=== PATIENT | male | born 1965 | race African-American/Black ===

== ENCOUNTER 2017-11-15 10:21 | Inpatient (IN) | payer OTHER ==
[2017-11-15 10:34] VITALS: BMI 44.6
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
[2017-11-15] MEDS ORDERED: chlordiazePOXIDE HCL 25 MG CAPSULE PO PRN (15:10)
[2017-11-15] MEDS ORDERED: LOPERAMIDE HCL 2 MG CAPSULE PO PRN (15:10)
[2017-11-15] MEDS ORDERED: guaiFENesin/D-METHORPHAN HB 10 ML UNIT-DOSE CUPS PO PRN (15:10)
[2017-11-15] MEDS ORDERED: MAGNESIUM CITRATE 300 ML BOTTLE PO PRN (15:10)
[2017-11-15] MEDS ORDERED: MAGNESIUM HYDROX 2400MG/30ML ORAL SUSPENSION 30 ML CUP PO PRN (15:10)
[2017-11-15] MEDS ORDERED: IBUPROFEN 400 MG TABLET (FP) PO PRN (15:10)
[2017-11-15] MEDS ORDERED: MAG HYDROX/AL HYDROX/SIMETH 30 ML UNIT-DOSE CUP PO PRN (15:10)
[2017-11-15] MEDS ORDERED: P-EPHED 60MG/TRIPROLIDI 2.5MG TABLET PO PRN (15:10)
[2017-11-15] MEDS ORDERED: ACETAMINOPHEN 325 MG TABLET (FP) PO PRN (15:10)
[2017-11-15] MEDS ORDERED: MENTHOL/PHENOL 1 EACH UD MM PRN (15:10)
[2017-11-15] MEDS: chlordiazePOXIDE HCL 25 MG CAPSULE PO SCH ×2 (16:54→22:16)
[2017-11-15] MEDS ORDERED: MELATONIN 5 MG TABLETS PO PRN (22:00)
[2017-11-15] MEDS: THIAMINE HCL 100 MG TABLET (FP) PO SCH (22:15)
[2017-11-15] MEDS: NICOTINE POLACRILEX 2 MG GUM BUC PRN (22:18)
[2017-11-16 00:52] LABS: URINE APPEARANCE CLEAR; URINE BILIRUBIN NEGATIVE (<2.0 mg/dL); URINE COLOR YELLOW; URINE GLUCOSE (UA) NEGATIVE (NEGATIVE); URINE KETONE NEGATIVE (NEGATIVE); URINE LEUK ESTERASE NEGATIVE (NEGATIVE); URINE NITRITE NEGATIVE (NEGATIVE); URINE PROTEIN NEGATIVE (NEGATIVE); URINE UROBILINOGEN NEGATIVE mg/dL (0.2-1.0)
[2017-11-16] MEDS: chlordiazePOXIDE HCL 25 MG CAPSULE PO SCH ×4 (06:01→22:20)
[2017-11-16 10:33] LABS: HEMATOCRIT 38.9 % (35.4-49); HEMOGLOBIN 13.3 GM/dL (11.7-16.9); MCH 29.7 pg (25.7-33.7); MCHC 34.2 g/dl (32.0-35.9); MEAN PLT VOLUME 9.8 fl (7.5-11.1); PLATELET COUNT 199 K/MM3 (134-434); RBC 4.47 M/mm3 (4.00-5.60); RDW 13.7 % (11.9-15.9); WHITE BLOOD COUNT 4.5 K/mm3 (4.0-10.0)
[2017-11-16] MEDS: PRENATAL VITAMINS W/ FOLIC ACID TABLET (FP) PO SCH (10:38)
[2017-11-16] MEDS: NICOTINE POLACRILEX 2 MG GUM BUC PRN (10:41)
[2017-11-16 10:53] LABS: CHLORIDE 107 mmol/L (98-107); POTASSIUM 4.6 mmol/L (3.5-5.1); SODIUM 139 mmol/L (136-145)
[2017-11-16 10:59] LABS: ALBUMIN 3.8 g/dl (3.4-5.0); ALK PHOS 92 U/L (45-117); ANION GAP 8 (8-16); BILIRUBIN,TOTAL 0.3 mg/dL (0.2-1.0); BLOOD UREA NITROGEN 18 mg/dL (7-18); CALCIUM 9.1 mg/dL (8.5-10.1); CO2 24 mmol/L (21-32); CREATININE 1.1 mg/dL (0.7-1.3); GLUCOSE,RANDOM 91 mg/dL (74-106); SGOT/AST 15 U/L (15-37); SGPT/ALT 33 U/L (12-78); TOT PROT 6.9 g/dl (6.4-8.2)
--- NOTE | 2017-11-16 11:33 | PN ---
S CIWA - CIWA Score Nausea/Vomitin-No Nausea/No Vomiting Muscle Tremors: 4-Moderate,w/Arms Extend Anxiety: 4-Mod. Anxious/Guarded Agitation: 4-Moderately Restless Paroxysmal Sweats: 1-Minimal Palms Moist Orientation: 0-Oriented Tacttile Disturbances: 0-None Auditory Disturbances: 0-None Visual Disturbances: 0-None Headache: 0-None Present CIWA-Ar Total Score: 13 BHS Progress Note (SOAP) Subjective: ANXIETY,SWEATS,CHILLS,LOWER BACK/KNEE PAINS,INTERMITTENT SLEEP. Objective: 11/16/17 11:32 Vital Signs 11/16/17 11/16/17 11/16/17 06:22 06:30 09:27 Temperature 97.0 F L 97.7 F Pulse Rate 46 L 56 L Respiratory 18 18 18 Rate Blood Pressure 116/69 146/96 Laboratory Tests 11/15/17 11/16/17 11/16/17 23:23 06:00 06:00 WBC 4.5 RBC 4.47 Hgb 13.3 Hct 38.9 MCV 87.0 MCH 29.7 MCHC 34.2 RDW 13.7 Plt Count 199 MPV 9.8 D Sodium 139 Potassium 4.6 Chloride 107 Carbon Dioxide 24 Anion Gap 8 BUN 18 Creatinine 1.1 Creat Clearance w eGFR > 60 Random Glucose 91 Calcium 9.1 Total Bilirubin 0.3 AST 15 ALT 33 Alkaline Phosphatase 92 Total Protein 6.9 Albumin 3.8 Urine Color Yellow Urine Appearance Clear Urine pH 5.0 Ur Specific [place] 1.027 Urine Protein Negative Urine Glucose (UA) Negative Urine Ketones Negative Urine Blood Negative Urine Nitrite Negative Urine Bilirubin Negative Urine Urobilinogen Negative Ur Leukocyte Esterase Negative Assessment: 11/16/17 11:32 WITHDRAWAL SX Plan: CONTINUE DETOX MOTRIN PRN LIDOCAINE PATCH
--- NOTE | 2017-11-16 13:17 | EKG ---
Test Reason : Blood Pressure : / mmHG Vent. Rate : 054 BPM Atrial Rate : 054 BPM P-R Int : 148 ms QRS Dur : 078 ms QT Int : 434 ms P-R-T Axes : 059 043 054 degrees QTc Int : 411 ms SINUS BRADYCARDIA OTHERWISE NORMAL ECG NO PREVIOUS ECGS AVAILABLE Confirmed by Lloyd Moon MD ([id number]) on 11/16/2017 1:16:27 PM Referred By: Confirmed By:Lloyd Moon MD
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
[2017-11-16] MEDS: THIAMINE HCL 100 MG TABLET (FP) PO SCH (22:20)
[2017-11-17] MEDS: chlordiazePOXIDE HCL 25 MG CAPSULE PO SCH ×2 (05:18→10:21)
[2017-11-17] MEDS: PRENATAL VITAMINS W/ FOLIC ACID TABLET (FP) PO SCH (10:22)
--- NOTE | 2017-11-17 10:27 | PN ---
[facility] CIWA - CIWA Score Nausea/Vomitin-No Nausea/No Vomiting Muscle Tremors: 4-Moderate,w/Arms Extend Anxiety: 4-Mod. Anxious/Guarded Agitation: 4-Moderately Restless Paroxysmal Sweats: 1-Minimal Palms Moist Orientation: 0-Oriented Tacttile Disturbances: 3-Moderate Itch/Numb/Burn Auditory Disturbances: 0-None Visual Disturbances: 0-None Headache: 0-None Present CIWA-Ar Total Score: 16 BHS Progress Note (SOAP) Subjective: ANXIETY, SWEAT,LOWER BACK PAIN,INTERMITTENT SLEEP. Objective: 11/17/17 10:26 Laboratory Tests 11/15/17 11/16/17 11/16/17 23:23 06:00 06:00 WBC 4.5 RBC 4.47 Hgb 13.3 Hct 38.9 MCV 87.0 MCH 29.7 MCHC 34.2 RDW 13.7 Plt Count 199 MPV 9.8 D Sodium 139 Potassium 4.6 Chloride 107 Carbon Dioxide 24 Anion Gap 8 BUN 18 Creatinine 1.1 Creat Clearance w eGFR > 60 Random Glucose 91 Calcium 9.1 Total Bilirubin 0.3 AST 15 ALT 33 Alkaline Phosphatase 92 Total Protein 6.9 Albumin 3.8 Urine Color Yellow Urine Appearance Clear Urine pH 5.0 Ur Specific [place] 1.027 Urine Protein Negative Urine Glucose (UA) Negative Urine Ketones Negative Urine Blood Negative Urine Nitrite Negative Urine Bilirubin Negative Urine Urobilinogen Negative Ur Leukocyte Esterase Negative RPR Titer Laboratory Tests 11/15/17 11/16/17 11/16/17 23:23 06:00 06:00 WBC 4.5 RBC 4.47 Hgb 13.3 Hct 38.9 MCV 87.0 MCH 29.7 MCHC 34.2 RDW 13.7 Plt Count 199 MPV 9.8 D Sodium 139 Potassium 4.6 Chloride 107 Carbon Dioxide 24 Anion Gap 8 BUN 18 Creatinine 1.1 Creat Clearance w eGFR > 60 Random Glucose 91 Calcium 9.1 Total Bilirubin 0.3 AST 15 ALT 33 Alkaline Phosphatase 92 Total Protein 6.9 Albumin 3.8 Urine Color Yellow Urine Appearance Clear Urine pH 5.0 Ur Specific [place] 1.027 Urine Protein Negative Urine Glucose (UA) Negative Urine Ketones Negative Urine Blood Negative Urine Nitrite Negative Urine Bilirubin Negative Urine Urobilinogen Negative Ur Leukocyte Esterase Negative RPR Titer 11/16/17 06:00 WBC RBC Hgb Hct MCV MCH MCHC RDW Plt Count MPV Sodium Potassium Chloride Carbon Dioxide Anion Gap BUN Creatinine Creat Clearance w eGFR Random Glucose Calcium Total Bilirubin AST ALT Alkaline Phosphatase Total Protein Albumin Urine Color Urine Appearance Urine pH Ur Specific [place] Urine Protein Urine Glucose (UA) Urine Ketones Urine Blood Urine Nitrite Urine Bilirubin Urine Urobilinogen Ur Leukocyte Esterase RPR Titer Nonreactive Vital Signs 11/17/17 11/17/17 11/17/17 03:30 05:56 06:30 Temperature 97.4 F L Pulse Rate 52 L Respiratory 18 18 18 Rate Blood Pressure 127/81 Assessment: 11/17/17 10:27 WITHDRAWAL SX CHRONIC LBP Plan: CONTINUE DETOX LIDOCAINE PATCH 5% DIRECTED.
[2017-11-17] MEDS: LIDOCAINE 5% TOPICAL PATCH TP SCH (10:55)
[2017-11-17] MEDS: chlordiazePOXIDE 5 MG CAPSULE PO SCH ×2 (18:19→22:09)
[2017-11-17] MEDS: NICOTINE POLACRILEX 2 MG GUM BUC PRN (18:19)
[2017-11-17] MEDS: THIAMINE HCL 100 MG TABLET (FP) PO SCH (22:09)
[2017-11-17] MEDS: LIDOCAINE PATCH REMOVAL MC SCH (22:09)
[2017-11-18] MEDS: chlordiazePOXIDE 5 MG CAPSULE PO SCH ×2 (05:28→11:45)
--- NOTE | 2017-11-18 08:18 | PN ---
BHS Progress Note (SOAP) Subjective: C/O LOWER BACK PAIN. ANXIETY,SWEATS. Objective: 11/18/17 08:18 Laboratory Tests 11/15/17 11/16/17 11/16/17 23: 06:00 06:00 WBC 4.5 RBC 4.47 Hgb 13.3 Hct 38.9 MCV 87.0 MCH 29.7 MCHC 34.2 RDW 13.7 Plt Count 199 MPV 9.8 D Sodium 139 Potassium 4.6 Chloride 107 Carbon Dioxide 24 Anion Gap 8 BUN 18 Creatinine 1.1 Creat Clearance w eGFR > 60 Random Glucose 91 Calcium 9.1 Total Bilirubin 0.3 AST 15 ALT 33 Alkaline Phosphatase 92 Total Protein 6.9 Albumin 3.8 Urine Color Yellow Urine Appearance Clear Urine pH 5.0 Ur Specific [place] 1.027 Urine Protein Negative Urine Glucose (UA) Negative Urine Ketones Negative Urine Blood Negative Urine Nitrite Negative Urine Bilirubin Negative Urine Urobilinogen Negative Ur Leukocyte Esterase Negative RPR Titer 11/16/17 06:00 WBC RBC Hgb Hct MCV MCH MCHC RDW Plt Count MPV Sodium Potassium Chloride Carbon Dioxide Anion Gap BUN Creatinine Creat Clearance w eGFR Random Glucose Calcium Total Bilirubin AST ALT Alkaline Phosphatase Total Protein Albumin Urine Color Urine Appearance Urine pH Ur Specific [place] Urine Protein Urine Glucose (UA) Urine Ketones Urine Blood Urine Nitrite Urine Bilirubin Urine Urobilinogen Ur Leukocyte Esterase RPR Titer Nonreactive Assessment: 11/18/17 08:17 WITHDRAWAL SX Plan: CONTINUE DETOX LIDOCAINE PATCH 5% DIRECTED.
[2017-11-18] MEDS: NICOTINE POLACRILEX 2 MG GUM BUC PRN (11:45)
[2017-11-18] MEDS: LIDOCAINE 5% TOPICAL PATCH TP SCH (11:45)
[2017-11-18] MEDS: PRENATAL VITAMINS W/ FOLIC ACID TABLET (FP) PO SCH (11:45)
--- NOTE | 2017-11-18 13:15 | PN ---
BHS Progress Note (SOAP) Subjective: PT REPORTS DETOX PROCEEDING WELL. ENCOURAGED PT TO SEE COUNSELOR FOR AFTERCARE PLANS PENDING DISCHARGE. Objective: 11/18/17 13:15 Vital Signs 11/18/17 11/18/17 11/18/17 06:22 06:30 11:24 Temperature 97.6 F 98.6 F Pulse Rate 53 L 61 Respiratory 18 18 20 Rate Blood Pressure 114/67 139/78 Laboratory Tests 11/15/17 11/16/17 11/16/17 23:23 06:00 06:00 WBC 4.5 RBC 4.47 Hgb 13.3 Hct 38.9 MCV 87.0 MCH 29.7 MCHC 34.2 RDW 13.7 Plt Count 199 MPV 9.8 D Sodium 139 Potassium 4.6 Chloride 107 Carbon Dioxide 24 Anion Gap 8 BUN 18 Creatinine 1.1 Creat Clearance w eGFR > 60 Random Glucose 91 Calcium 9.1 Total Bilirubin 0.3 AST 15 ALT 33 Alkaline Phosphatase 92 Total Protein 6.9 Albumin 3.8 Urine Color Yellow Urine Appearance Clear Urine pH 5.0 Ur Specific [place] 1.027 Urine Protein Negative Urine Glucose (UA) Negative Urine Ketones Negative Urine Blood Negative Urine Nitrite Negative Urine Bilirubin Negative Urine Urobilinogen Negative Ur Leukocyte Esterase Negative RPR Titer 11/16/17 06:00 WBC RBC Hgb Hct MCV MCH MCHC RDW Plt Count MPV Sodium Potassium Chloride Carbon Dioxide Anion Gap BUN Creatinine Creat Clearance w eGFR Random Glucose Calcium Total Bilirubin AST ALT Alkaline Phosphatase Total Protein Albumin Urine Color Urine Appearance Urine pH Ur Specific [place] Urine Protein Urine Glucose (UA) Urine Ketones Urine Blood Urine Nitrite Urine Bilirubin Urine Urobilinogen Ur Leukocyte Esterase RPR Titer Nonreactive Assessment: 11/18/17 13:15 WITHDRAWAL SX Plan: CONTINUE DETOX
[2017-11-18] MEDS: chlordiazePOXIDE HCL 10 MG CAPSULE PO SCH ×2 (16:50→22:14)
[2017-11-18] MEDS: THIAMINE HCL 100 MG TABLET (FP) PO SCH (22:14)
[2017-11-18] MEDS: LIDOCAINE PATCH REMOVAL MC SCH (22:24)
[2017-11-19] MEDS: chlordiazePOXIDE HCL 10 MG CAPSULE PO SCH (06:02)
[2017-11-19 09:20] VITALS: BP 126/84; PULSE 61; TEMP 97
--- NOTE | 2017-11-19 12:43 | PN ---
BHS Progress Note (SOAP) Subjective: DETOX COMPLETED. ALERT O X 3. NAD. PT REPORTS HE GOES TO A DOCTOR AT [facility] FOR PRIMARY CARE. Objective: 11/19/17 12:42 Vital Signs 11/19/17 11/19/17 06:25 09:19 Temperature 97.9 F 97 F L Pulse Rate 57 L 61 Respiratory 18 20 Rate Blood Pressure 102/62 126/84 Laboratory Tests 11/15/17 11/16/17 11/16/17 23:23 06:00 06:00 WBC 4.5 RBC 4.47 Hgb 13.3 Hct 38.9 MCV 87.0 MCH 29.7 MCHC 34.2 RDW 13.7 Plt Count 199 MPV 9.8 D Sodium 139 Potassium 4.6 Chloride 107 Carbon Dioxide 24 Anion Gap 8 BUN 18 Creatinine 1.1 Creat Clearance w eGFR > 60 Random Glucose 91 Calcium 9.1 Total Bilirubin 0.3 AST 15 ALT 33 Alkaline Phosphatase 92 Total Protein 6.9 Albumin 3.8 Urine Color Yellow Urine Appearance Clear Urine pH 5.0 Ur Specific [place] 1.027 Urine Protein Negative Urine Glucose (UA) Negative Urine Ketones Negative Urine Blood Negative Urine Nitrite Negative Urine Bilirubin Negative Urine Urobilinogen Negative Ur Leukocyte Esterase Negative RPR Titer 11/16/17 06:00 WBC RBC Hgb Hct MCV MCH MCHC RDW Plt Count MPV Sodium Potassium Chloride Carbon Dioxide Anion Gap BUN Creatinine Creat Clearance w eGFR Random Glucose Calcium Total Bilirubin AST ALT Alkaline Phosphatase Total Protein Albumin Urine Color Urine Appearance Urine pH Ur Specific [place] Urine Protein Urine Glucose (UA) Urine Ketones Urine Blood Urine Nitrite Urine Bilirubin Urine Urobilinogen Ur Leukocyte Esterase RPR Titer Nonreactive Assessment: 11/19/17 12:42 MEDICALLY STABLE Plan: D/C PT TODAY.
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
== END 2017-11-19 09:50 | disposition home or self-care (01) | DRG 774 ==
LOC: YASAS 10:21 → Y3N 13:51
PROVIDERS: ADMIT Surgery; ATTEND Surgery
PROC: HZ2ZZZZ Detoxification Services for Substance Abuse Treatment (ICD-10-PCS; principal; 2017-11-15)
DX: F10.230 Alcohol dependence with withdrawal, uncomplicated (principal); F14.20 Cocaine dependence, uncomplicated; F17.213 Nicotine dependence, cigarettes, with withdrawal; M54.5 Low back pain; G89.29 Other chronic pain; E66.01 Morbid (severe) obesity due to excess calories; Z68.41 Body mass index [BMI] 40.0-44.9, adult; Z86.19 Personal history of other infectious and parasitic diseases; Z87.828 Personal history of other (healed) physical injury and trauma
CPT/HCPCS: 36415; 80053; 81003; 85027; 86593; 93005; 93010

== ENCOUNTER 2018-02-13 10:00 | Inpatient (IN) | payer OTHER ==
[2018-02-13 10:03] VITALS: BMI 42.5
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
[2018-02-13] MEDS ORDERED: hydrOXYzine PAMOATE 25 MG CAPSULE (FP) PO PRN (12:44)
[2018-02-13] MEDS ORDERED: NICOTINE POLACRILEX 2 MG GUM BC PRN (12:44)
[2018-02-13] MEDS ORDERED: MAGNESIUM HYDROX 2400MG/30ML ORAL SUSPENSION 30 ML CUP PO PRN (12:44)
[2018-02-13] MEDS ORDERED: chlordiazePOXIDE HCL 25 MG CAPSULE PO ONE (12:44)
[2018-02-13] MEDS ORDERED: MENTHOL/PHENOL 1 EACH UD MM PRN (12:44)
[2018-02-13] MEDS ORDERED: ACETAMINOPHEN 325 MG TABLET (FP) PO PRN (12:44)
[2018-02-13] MEDS ORDERED: MAG HYDROX/AL HYDROX/SIMETH 30 ML UNIT-DOSE CUP PO PRN (12:44)
[2018-02-13] MEDS ORDERED: LOPERAMIDE HCL 2 MG CAPSULE PO PRN (12:44)
[2018-02-13] MEDS ORDERED: guaiFENesin/D-METHORPHAN HB 10 ML UNIT-DOSE CUPS PO PRN (12:44)
[2018-02-13] MEDS ORDERED: P-EPHED 60MG/TRIPROLIDI 2.5MG TABLET PO PRN (12:44)
[2018-02-13] MEDS ORDERED: MAGNESIUM CITRATE 300 ML BOTTLE PO PRN (12:44)
[2018-02-13] MEDS ORDERED: chlordiazePOXIDE HCL 25 MG CAPSULE PO PRN (12:44)
[2018-02-13] MEDS: chlordiazePOXIDE HCL 25 MG CAPSULE PO SCH ×2 (17:49→22:18)
[2018-02-13] MEDS: IBUPROFEN 400 MG TABLET (FP) PO PRN (17:51)
[2018-02-13 18:40] LABS: URINE APPEARANCE CLEAR; URINE BILIRUBIN NEGATIVE (<2.0 mg/dL); URINE COLOR AMBER; URINE GLUCOSE (UA) NEGATIVE (NEGATIVE); URINE KETONE TRACE (NEGATIVE); URINE LEUK ESTERASE NEGATIVE (NEGATIVE); URINE NITRITE NEGATIVE (NEGATIVE); URINE PROTEIN NEGATIVE (NEGATIVE); URINE UROBILINOGEN 4.0 E.U/dl mg/dL (0.2-1.0)
[2018-02-13] MEDS: THIAMINE HCL 100 MG TABLET (FP) PO SCH (22:18)
[2018-02-14] MEDS: chlordiazePOXIDE HCL 25 MG CAPSULE PO SCH ×4 (05:26→22:17)
[2018-02-14] MEDS: PRENATAL VITAMINS W/ FOLIC ACID TABLET (FP) PO SCH (10:08)
[2018-02-14] MEDS: IBUPROFEN 400 MG TABLET (FP) PO PRN ×2 (10:09→22:16)
[2018-02-14 10:28] LABS: HEMATOCRIT 41.4 % (35.4-49); HEMOGLOBIN 13.2 GM/dL (11.7-16.9); MCH 27.8 pg (25.7-33.7); MCHC 31.8 g/dl (32.0-35.9); MEAN CELL VOLUME 87.6 fl (80-96); MEAN PLT VOLUME 8.9 fl (7.5-11.1); PLATELET COUNT 197 K/MM3 (134-434); RBC 4.73 M/mm3 (4.00-5.60); RDW 13.7 % (11.9-15.9); WHITE BLOOD COUNT 3.5 K/mm3 (4.0-10.0)
[2018-02-14 10:53] LABS: ALBUMIN 3.4 g/dl (3.4-5.0); ALK PHOS 90 U/L (45-117); ANION GAP 9 MMOL/L (8-16); BILIRUBIN,TOTAL 0.8 mg/dL (0.2-1); BLOOD UREA NITROGEN 17 mg/dL (7-18); CALCIUM 8.9 mg/dL (8.5-10.1); CHLORIDE 106 mmol/L (98-107); CO2 23 mmol/L (21-32); CREATININE 1.1 mg/dL (0.55-1.3); GLUCOSE,RANDOM 105 mg/dL (74-106); POTASSIUM 4.4 mmol/L (3.5-5.1); SGOT/AST 24 U/L (15-37); SGPT/ALT 37 U/L (13-61); SODIUM 139 mmol/L (136-145); TOT PROT 6.3 g/dl (6.4-8.2)
[2018-02-14] MEDS ORDERED: FLU VACCINE QUAD 60 MCG/0.5 ML (MDV 18-19) IM ONE (12:00)
--- NOTE | 2018-02-14 14:41 | PN ---
[facility] CIWA - CIWA Score Nausea/Vomitin-No Nausea/No Vomiting Muscle Tremors: 4-Moderate,w/Arms Extend Anxiety: 1-Mildly Anxious Agitation: 4-Moderately Restless Paroxysmal Sweats: 3 Orientation: 0-Oriented Tacttile Disturbances: 0-None Auditory Disturbances: 0-None Visual Disturbances: 0-None Headache: 0-None Present CIWA-Ar Total Score: 12 S Progress Note (SOAP) Subjective: C/o continued restlessness and feelings of anxiety. States had a diarrhea episode of watery brown stool earlier this am. Denies nausea or vomiting. C/o arthritis pain in knees and back. Objective: A&O x 3. Seen pacing floors. No increased warmth at knees or (L) shoulder area. 02/14/18 14:41 Vital Signs 02/14/18 02/14/18 09:01 13:17 Temperature 97.6 F 98.2 F Pulse Rate 58 L 61 Respiratory 18 18 Rate Blood Pressure 134/85 134/86 Lab Results WBC 3.5 K/mm3 (4.0-10.0) L 02/14/18 07:00 RBC 4.73 M/mm3 (4.00-5.60) 02/14/18 07:00 Hgb 13.2 GM/dL (11.7-16.9) 02/14/18 07:00 Hct 41.4 % (35.4-49) 02/14/18 07:00 MCV 87.6 fl (80-96) 02/14/18 07:00 MCHC 31.8 g/dl (32.0-35.9) L 02/14/18 07:00 RDW 13.7 % (11.9-15.9) 02/14/18 07:00 Plt Count 197 K/MM3 (134-434) 02/14/18 07:00 Sodium 139 mmol/L (136-145) 02/14/18 07:00 Potassium 4.4 mmol/L (3.5-5.1) 02/14/18 07:00 Chloride 106 mmol/L (98-107) 02/14/18 07:00 Carbon Dioxide 23 mmol/L (21-32) 02/14/18 07:00 Anion Gap 9 MMOL/L (8-16) 02/14/18 07:00 BUN 17 mg/dL (7-18) 02/14/18 07:00 Creatinine 1.1 mg/dL (0.55-1.3) 02/14/18 07:00 Random Glucose 105 mg/dL (74-106) 02/14/18 07:00 Calcium 8.9 mg/dL (8.5-10.1) 02/14/18 07:00 Labs reviewed. Assessment: Withdrawal symptoms. Arthritic pain. Plan: Continue detox.
[2018-02-14] MEDS: MELATONIN 5 MG TABLETS PO PRN (22:17)
[2018-02-14] MEDS: THIAMINE HCL 100 MG TABLET (FP) PO SCH (22:17)
--- NOTE | 2018-02-14 23:54 | EKG ---
Test Reason : Blood Pressure : / mmHG Vent. Rate : 073 BPM Atrial Rate : 073 BPM P-R Int : 144 ms QRS Dur : 084 ms QT Int : 400 ms P-R-T Axes : 065 011 055 degrees QTc Int : 440 ms NORMAL SINUS RHYTHM NONSPECIFIC T WAVE ABNORMALITY ABNORMAL ECG WHEN COMPARED WITH ECG OF 15-NOV-2017 15:39, NO SIGNIFICANT CHANGE WAS FOUND Confirmed by TOM LARSEN MD ([id number]) on 02/14/2018 11:53:57 PM Referred By: Confirmed By:TOM LARSEN MD
[2018-02-15] MEDS: chlordiazePOXIDE HCL 25 MG CAPSULE PO SCH ×2 (05:07→10:11)
[2018-02-15] MEDS ORDERED: IBUPROFEN 400 MG TABLET (FP) PO ONE (10:01)
[2018-02-15] MEDS: PRENATAL VITAMINS W/ FOLIC ACID TABLET (FP) PO SCH (10:11)
[2018-02-15] MEDS: METHYL SALICYLATE/MENTHOL OINT 30 GM TUBE TP SCH ×2 (10:19→22:39)
[2018-02-15] MEDS ORDERED: cloNIDine HCL 0.1 MG TABLET PO PRN (10:43)
--- NOTE | 2018-02-15 10:46 | PN ---
[facility] CIWA - CIWA Score Nausea/Vomitin Muscle Tremors: 3 Anxiety: 4-Mod. Anxious/Guarded Agitation: 3 Paroxysmal Sweats: 3 Orientation: 0-Oriented Tacttile Disturbances: 0-None Auditory Disturbances: 0-None Visual Disturbances: 0-None Headache: 0-None Present CIWA-Ar Total Score: 15 S Progress Note (SOAP) Subjective: Back pain (7/10), sweating, chills, interrupted sleep; c/o pain in knees (r/t arthritis) Objective: 02/15/18 10:42 Last Vital Signs Temp Pulse Resp BP Pulse Ox 96.1 F L 74 18 147/85 02/15/18 10:01 02/15/18 10:01 02/15/18 10:01 02/15/18 10:01 B/P elevated Laboratory Tests 02/13/18 02/14/18 02/14/18 14:35 07:00 07:00 WBC 3.5 L RBC 4.73 Hgb 13.2 Hct 41.4 MCV 87.6 MCH 27.8 MCHC 31.8 L RDW 13.7 Plt Count 197 MPV 8.9 Sodium 139 Potassium 4.4 Chloride 106 Carbon Dioxide 23 Anion Gap 9 BUN 17 Creatinine 1.1 Creat Clearance w eGFR > 60 Random Glucose 105 Calcium 8.9 Total Bilirubin 0.8 AST 24 ALT 37 Alkaline Phosphatase 90 Total Protein 6.3 L Albumin 3.4 Urine Color [place] Urine Appearance Clear Urine pH 5.0 Ur Specific [place] 1.028 Urine Protein Negative Urine Glucose (UA) Negative Urine Ketones Trace H Urine Blood Negative Urine Nitrite Negative Urine Bilirubin Negative Urine Urobilinogen 4.0 e.u/dl Ur Leukocyte Esterase Negative RPR Titer 02/14/18 07:00 WBC RBC Hgb Hct MCV MCH MCHC RDW Plt Count MPV Sodium Potassium Chloride Carbon Dioxide Anion Gap BUN Creatinine Creat Clearance w eGFR Random Glucose Calcium Total Bilirubin AST ALT Alkaline Phosphatase Total Protein Albumin Urine Color Urine Appearance Urine pH Ur Specific [place] Urine Protein Urine Glucose (UA) Urine Ketones Urine Blood Urine Nitrite Urine Bilirubin Urine Urobilinogen Ur Leukocyte Esterase RPR Titer Nonreactive Labs reviewed Assessment: 02/15/18 10:46 Withdrawal symptoms Noted with elevated blood pressure Plan: Continue detox Encouraged PO water intake Elevated blood pressure: most likely due to withdrawal, start clonidine 0.1mg PO q8hr prn if b/p > 140/90, continue to monitor Motrin 800mg PO x 1 for back pain 10/05; analgesic balm bid for pain in knees due to arthritis
[2018-02-15] MEDS: IBUPROFEN 400 MG TABLET (FP) PO PRN ×2 (17:31→22:36)
[2018-02-15] MEDS: chlordiazePOXIDE 5 MG CAPSULE PO SCH ×2 (17:31→22:35)
[2018-02-15] MEDS: THIAMINE HCL 100 MG TABLET (FP) PO SCH (22:35)
[2018-02-16] MEDS: chlordiazePOXIDE 5 MG CAPSULE PO SCH ×2 (05:54→10:12)
[2018-02-16] MEDS: PRENATAL VITAMINS W/ FOLIC ACID TABLET (FP) PO SCH (09:36)
[2018-02-16] MEDS: METHYL SALICYLATE/MENTHOL OINT 30 GM TUBE TP SCH ×2 (09:37→23:34)
--- NOTE | 2018-02-16 14:31 | PN ---
[facility] Progress Note (SOAP) Subjective: Sweating, diarrhea Objective: 02/16/18 14:30 Last Vital Signs Temp Pulse Resp BP Pulse Ox 97.7 F 72 18 132/79 02/16/18 13:35 02/16/18 13:35 02/16/18 13:35 02/16/18 13:35 Laboratory Tests 02/13/18 02/14/18 02/14/18 14:35 07:00 07:00 WBC 3.5 L RBC 4.73 Hgb 13.2 Hct 41.4 MCV 87.6 MCH 27.8 MCHC 31.8 L RDW 13.7 Plt Count 197 MPV 8.9 Sodium 139 Potassium 4.4 Chloride 106 Carbon Dioxide 23 Anion Gap 9 BUN 17 Creatinine 1.1 Creat Clearance w eGFR > 60 Random Glucose 105 Calcium 8.9 Total Bilirubin 0.8 AST 24 ALT 37 Alkaline Phosphatase 90 Total Protein 6.3 L Albumin 3.4 Urine Color [place] Urine Appearance Clear Urine pH 5.0 Ur Specific [place] 1.028 Urine Protein Negative Urine Glucose (UA) Negative Urine Ketones Trace H Urine Blood Negative Urine Nitrite Negative Urine Bilirubin Negative Urine Urobilinogen 4.0 e.u/dl Ur Leukocyte Esterase Negative RPR Titer 02/14/18 07:00 WBC RBC Hgb Hct MCV MCH MCHC RDW Plt Count MPV Sodium Potassium Chloride Carbon Dioxide Anion Gap BUN Creatinine Creat Clearance w eGFR Random Glucose Calcium Total Bilirubin AST ALT Alkaline Phosphatase Total Protein Albumin Urine Color Urine Appearance Urine pH Ur Specific [place] Urine Protein Urine Glucose (UA) Urine Ketones Urine Blood Urine Nitrite Urine Bilirubin Urine Urobilinogen Ur Leukocyte Esterase RPR Titer Nonreactive Labs reviewed Assessment: 02/16/18 14:30 Withdrawal symptoms Plan: Continue detox Encouraged PO water intake
[2018-02-16] MEDS: chlordiazePOXIDE HCL 10 MG CAPSULE PO SCH ×2 (18:51→22:24)
[2018-02-16] MEDS: MELATONIN 5 MG TABLETS PO PRN (22:25)
[2018-02-16] MEDS: THIAMINE HCL 100 MG TABLET (FP) PO SCH (22:25)
[2018-02-17] MEDS: chlordiazePOXIDE HCL 10 MG CAPSULE PO SCH ×2 (05:28→10:43)
[2018-02-17] MEDS: METHYL SALICYLATE/MENTHOL OINT 30 GM TUBE TP SCH ×2 (10:43→22:17)
[2018-02-17] MEDS: PRENATAL VITAMINS W/ FOLIC ACID TABLET (FP) PO SCH (10:43)
[2018-02-17] MEDS: IBUPROFEN 400 MG TABLET (FP) PO PRN ×2 (10:45→22:18)
--- NOTE | 2018-02-17 11:31 | PN ---
[facility] Progress Note (SOAP) Subjective: Sweating, chills, anxious Objective: 02/17/18 11:30 Last Vital Signs Temp Pulse Resp BP Pulse Ox 97.4 F L 70 18 118/71 02/17/18 09:03 02/17/18 09:03 02/17/18 09:03 02/17/18 09:03 Laboratory Tests 02/13/18 02/14/18 02/14/18 14:35 07:00 07:00 WBC 3.5 L RBC 4.73 Hgb 13.2 Hct 41.4 MCV 87.6 MCH 27.8 MCHC 31.8 L RDW 13.7 Plt Count 197 MPV 8.9 Sodium 139 Potassium 4.4 Chloride 106 Carbon Dioxide 23 Anion Gap 9 BUN 17 Creatinine 1.1 Creat Clearance w eGFR > 60 Random Glucose 105 Calcium 8.9 Total Bilirubin 0.8 AST 24 ALT 37 Alkaline Phosphatase 90 Total Protein 6.3 L Albumin 3.4 Urine Color [place] Urine Appearance Clear Urine pH 5.0 Ur Specific [place] 1.028 Urine Protein Negative Urine Glucose (UA) Negative Urine Ketones Trace H Urine Blood Negative Urine Nitrite Negative Urine Bilirubin Negative Urine Urobilinogen 4.0 e.u/dl Ur Leukocyte Esterase Negative RPR Titer 02/14/18 07:00 WBC RBC Hgb Hct MCV MCH MCHC RDW Plt Count MPV Sodium Potassium Chloride Carbon Dioxide Anion Gap BUN Creatinine Creat Clearance w eGFR Random Glucose Calcium Total Bilirubin AST ALT Alkaline Phosphatase Total Protein Albumin Urine Color Urine Appearance Urine pH Ur Specific [place] Urine Protein Urine Glucose (UA) Urine Ketones Urine Blood Urine Nitrite Urine Bilirubin Urine Urobilinogen Ur Leukocyte Esterase RPR Titer Nonreactive Labs reviewed Assessment: 02/17/18 11:30 Withdrawal symptoms Plan: Continue detox Encouraged PO water intake Patient is for discharge tomorrow
[2018-02-17] MEDS: THIAMINE HCL 100 MG TABLET (FP) PO SCH (22:17)
[2018-02-18 06:14] VITALS: BP 124/78; PULSE 65; TEMP 97.7
--- NOTE | 2018-02-18 12:22 | DS ---
[facility] Detox Discharge Summary Admission Date: 02/13/18 Discharge Date: 02/18/18 - History Present History: Alcohol Dependence - Physical Exam Results Vital Signs: Vital Signs Temperature 97.7 F 02/18/18 06:14 Pulse Rate 65 02/18/18 06:14 Respiratory Rate 18 02/18/18 06:14 Blood Pressure 124/78 02/18/18 06:14 O2 Sat by Pulse Oximetry (%) - Treatment Hospital Course: Detox Protocol Followed, Detoxed Safely, Responded well, Discharged Condition Good - Medication Discharge Medications: Ambulatory Orders NK [No Known Home Medication] 11/15/17 - AMA Did Patient Leave Against Medical Advice: No
== END 2018-02-18 08:46 | disposition home or self-care (01) | DRG 774 ==
LOC: YASAS 10:00 → Y3N 12:56
PROC: HZ2ZZZZ Detoxification Services for Substance Abuse Treatment (ICD-10-PCS; principal; 2018-02-13)
DX: F10.230 Alcohol dependence with withdrawal, uncomplicated (principal); F14.20 Cocaine dependence, uncomplicated; F17.213 Nicotine dependence, cigarettes, with withdrawal; D64.9 Anemia, unspecified; R03.0 Elevated blood-pressure reading, without diagnosis of hypertension; M12.9 Arthropathy, unspecified; Z87.39 Personal history of other diseases of the musculoskeletal system and connective tissue; Z86.79 Personal history of other diseases of the circulatory system
CPT/HCPCS: 36415; 80053; 81003; 85027; 86593; 90688; 93005; 93010; G0008; J0735

== ENCOUNTER 2018-06-03 10:15 | Inpatient (IN) | payer OTHER ==
[2018-06-03 11:21] VITALS: BMI 42.5
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
[2018-06-03] MEDS ORDERED: IBUPROFEN 400 MG TABLET (FP) PO PRN (13:20)
[2018-06-03] MEDS ORDERED: BISMUTH SUBSALICYLATE 262 MG/15 ML BTL PO PRN (13:20)
[2018-06-03] MEDS ORDERED: chlordiazePOXIDE HCL 25 MG CAPSULE PO PRN (13:20)
[2018-06-03] MEDS ORDERED: MAG HYDROX/AL HYDROX/SIMETH 30 ML UNIT-DOSE CUP PO PRN (13:20)
[2018-06-03] MEDS ORDERED: hydrOXYzine PAMOATE 25 MG CAPSULE (FP) PO PRN (13:20)
[2018-06-03] MEDS ORDERED: MENTHOL/PHENOL 1 EACH UD MM PRN (13:20)
[2018-06-03] MEDS ORDERED: MAGNESIUM HYDROX 2400MG/30ML ORAL SUSPENSION 30 ML CUP PO PRN (13:20)
[2018-06-03] MEDS ORDERED: MAGNESIUM CITRATE 300 ML BOTTLE PO PRN (13:20)
[2018-06-03] MEDS ORDERED: ACETAMINOPHEN 325 MG TABLET (FP) PO PRN ×2 (13:20)
[2018-06-03] MEDS: chlordiazePOXIDE HCL 25 MG CAPSULE PO SCH ×2 (16:58→22:55)
[2018-06-03] MEDS: THIAMINE HCL 100 MG TABLET (FP) PO SCH (22:55)
[2018-06-04] MEDS: chlordiazePOXIDE HCL 25 MG CAPSULE PO SCH ×4 (05:49→22:11)
[2018-06-04] MEDS: IBUPROFEN 600 MG TABLET (FP) PO PRN ×2 (05:52→17:53)
[2018-06-04 10:19] LABS: HEMOGLOBIN 13.3 GM/dL (11.7-16.9); MCH 29.4 pg (25.7-33.7); MCHC 34.1 g/dl (32.0-35.9); MEAN CELL VOLUME 86.1 fl (80-96); MEAN PLT VOLUME 9.5 fl (7.5-11.1); PLATELET COUNT 257 K/MM3 (134-434); RBC 4.53 M/mm3 (4.00-5.60); RDW 13.4 % (11.9-15.9)
[2018-06-04] MEDS: PRENATAL VITAMINS W/ FOLIC ACID TABLET (FP) PO SCH (10:40)
[2018-06-04 10:43] LABS: ALBUMIN 3.9 g/dl (3.4-5.0); ALK PHOS 107 U/L (45-117); ANION GAP 7 MMOL/L (8-16); BILIRUBIN,TOTAL 0.5 mg/dL (0.2-1); BLOOD UREA NITROGEN 19 mg/dL (7-18); CALCIUM 9.8 mg/dL (8.5-10.1); CHLORIDE 107 mmol/L (98-107); CO2 25 mmol/L (21-32); CREATININE 1.4 mg/dL (0.55-1.3); GLUCOSE,RANDOM 127 mg/dL (74-106); POTASSIUM 4.3 mmol/L (3.5-5.1); SGOT/AST 23 U/L (15-37); SGPT/ALT 54 U/L (13-61); SODIUM 140 mmol/L (136-145); TOT PROT 7.2 g/dl (6.4-8.2)
[2018-06-04] MEDS: NICOTINE POLACRILEX 2 MG GUM BUC PRN ×2 (13:29→17:54)
[2018-06-04] MEDS: guaiFENesin 200 MG/10 ML 10 ML UNIT-DOSE CUPS PO PRN ×2 (13:29→20:57)
--- NOTE | 2018-06-04 13:42 | PN ---
[facility] CIWA - CIWA Score Nausea/Vomitin-No Nausea/No Vomiting Muscle Tremors: None Anxiety: 2 Agitation: 0-Normal Activity Paroxysmal Sweats: 3 Orientation: 0-Oriented Tacttile Disturbances: 3-Moderate Itch/Numb/Burn Auditory Disturbances: 0-None Visual Disturbances: 3-Moderate Sensitivity Headache: 0-None Present CIWA-Ar Total Score: 11 S Progress Note (SOAP) Subjective: Sweating, Body Aches, Anxious. Objective: PATIENT A & O X 3, OBSERVED AMBULATING ON UNIT. IN NO ACUTE DISTRESS. 06/04/18 13:39 Vital Signs Temperature 97.5 F L 06/04/18 09:28 Pulse Rate 59 L 06/04/18 09:28 Respiratory Rate 18 06/04/18 09:28 Blood Pressure 132/79 06/04/18 09:28 O2 Sat by Pulse Oximetry (%) Laboratory Tests 06/03/18 06/04/18 06/04/18 13:20 05:30 05:30 WBC 6.0 RBC 4.53 Hgb 13.3 Hct 39.0 MCV 86.1 MCH 29.4 MCHC 34.1 RDW 13.4 Plt Count 257 D MPV 9.5 Sodium 140 Potassium 4.3 Chloride 107 Carbon Dioxide 25 Anion Gap 7 L BUN 19 H Creatinine 1.4 H Creat Clearance w eGFR 52.81 Random Glucose 127 H Calcium 9.8 Total Bilirubin 0.5 AST 23 ALT 54 Alkaline Phosphatase 107 Total Protein 7.2 Albumin 3.9 HIV 1&2 Antibody Screen Negative HIV P24 Antigen Negative LABS NOTED. RPR RESULT PENDING. 06/04/18 13:42 Assessment: 06/04/18 13:40 WITHDRAWAL SYMPTOMS. Plan: CONTINUE DETOX. INCREASE DAILY PO FLUID INTAKE. TOPICAL LIDODERM PATCH FOR LOWER BACK PAIN. PRN METHOCARBIMOL FOR BODY ACHES. MUSCLE SPASMS. D/C MAGNESIUM-CONTAINING MEDS. FOR ABNORMAL ADMISSION RENAL LAB VALUES.
[2018-06-04] MEDS: LIDOCAINE 5% TOPICAL PATCH TP SCH (14:29)
[2018-06-04] MEDS: THIAMINE HCL 100 MG TABLET (FP) PO SCH (22:11)
[2018-06-04] MEDS: MELATONIN 5 MG TABLETS PO PRN (22:12)
[2018-06-04] MEDS: LIDOCAINE PATCH REMOVAL MC SCH (23:37)
[2018-06-05] MEDS: chlordiazePOXIDE HCL 25 MG CAPSULE PO SCH ×2 (06:11→10:58)
[2018-06-05] MEDS: guaiFENesin 200 MG/10 ML 10 ML UNIT-DOSE CUPS PO PRN (06:11)
[2018-06-05] MEDS: IBUPROFEN 600 MG TABLET (FP) PO PRN ×3 (06:11→22:39)
[2018-06-05] MEDS: PRENATAL VITAMINS W/ FOLIC ACID TABLET (FP) PO SCH (10:58)
[2018-06-05] MEDS: LIDOCAINE 5% TOPICAL PATCH TP SCH (11:03)
--- NOTE | 2018-06-05 12:22 | PN ---
S CIWA - CIWA Score Nausea/Vomitin-No Nausea/No Vomiting Muscle Tremors: 2 Anxiety: 2 Agitation: 2 Paroxysmal Sweats: 1-Minimal Palms Moist Orientation: 0-Oriented Tacttile Disturbances: 0-None Auditory Disturbances: 0-None Visual Disturbances: 0-None Headache: 0-None Present CIWA-Ar Total Score: 7 S Progress Note (SOAP) Subjective: tremor able to sleep at night less headache today mild sweating more energy ambulating on hallway Objective: 06/05/18 12:22 Vital Signs Temperature 97.0 F L 06/05/18 06:24 Pulse Rate 60 06/05/18 06:24 Respiratory Rate 18 06/05/18 06:30 Blood Pressure 110/69 06/05/18 06:24 O2 Sat by Pulse Oximetry (%) Laboratory Last Values WBC 6.0 K/mm3 (4.0-10.0) 06/04/18 05:30 RBC 4.53 M/mm3 (4.00-5.60) 06/04/18 05:30 Hgb 13.3 GM/dL (11.7-16.9) 06/04/18 05:30 Hct 39.0 % (35.4-49) 06/04/18 05:30 MCV 86.1 fl (80-96) 06/04/18 05:30 MCH 29.4 pg (25.7-33.7) 06/04/18 05:30 MCHC 34.1 g/dl (32.0-35.9) 06/04/18 05:30 RDW 13.4 % (11.9-15.9) 06/04/18 05:30 Plt Count 257 K/MM3 (134-434) D 06/04/18 05:30 MPV 9.5 fl (7.5-11.1) 06/04/18 05:30 Sodium 140 mmol/L (136-145) 06/04/18 05:30 Potassium 4.3 mmol/L (3.5-5.1) 06/04/18 05:30 Chloride 107 mmol/L (98-107) 06/04/18 05:30 Carbon Dioxide 25 mmol/L (21-32) 06/04/18 05:30 Anion Gap 7 MMOL/L (8-16) L 06/04/18 05:30 BUN 19 mg/dL (7-18) H 06/04/18 05:30 Creatinine 1.4 mg/dL (0.55-1.3) H 06/04/18 05:30 Creat Clearance w eGFR 52.81 (>60) 06/04/18 05:30 Random Glucose 127 mg/dL (74-106) H 06/04/18 05:30 Calcium 9.8 mg/dL (8.5-10.1) 06/04/18 05:30 Total Bilirubin 0.5 mg/dL (0.2-1) 06/04/18 05:30 AST 23 U/L (15-37) 06/04/18 05:30 ALT 54 U/L (13-61) 06/04/18 05:30 Alkaline Phosphatase 107 U/L (45-117) 06/04/18 05:30 Total Protein 7.2 g/dl (6.4-8.2) 06/04/18 05:30 Albumin 3.9 g/dl (3.4-5.0) 06/04/18 05:30 RPR Titer Nonreactive (NONREACTIVE) 06/04/18 05:30 HIV 1&2 Antibody Screen Negative 06/03/18 13:20 HIV P24 Antigen Negative 06/03/18 13:20 lab noted Assessment: 06/05/18 12:22 withdrawal sx Plan: continue detox
[2018-06-05] MEDS: NICOTINE POLACRILEX 2 MG GUM BUC PRN ×2 (14:46→19:31)
[2018-06-05] MEDS ORDERED: chlordiazePOXIDE HCL 10 MG CAPSULE PO PRN (17:00)
[2018-06-05] MEDS: chlordiazePOXIDE HCL 10 MG CAPSULE PO SCH ×2 (17:50→22:40)
[2018-06-05] MEDS: THIAMINE HCL 100 MG TABLET (FP) PO SCH (22:39)
[2018-06-05] MEDS: MELATONIN 5 MG TABLETS PO PRN (22:40)
[2018-06-05] MEDS: METHOCARBAMOL 500 MG TABLET PO PRN (22:40)
[2018-06-05] MEDS: LIDOCAINE PATCH REMOVAL MC SCH (22:42)
[2018-06-06] MEDS: IBUPROFEN 600 MG TABLET (FP) PO PRN (05:42)
[2018-06-06] MEDS: chlordiazePOXIDE HCL 10 MG CAPSULE PO SCH ×3 (05:42→16:54)
[2018-06-06] MEDS: guaiFENesin 200 MG/10 ML 10 ML UNIT-DOSE CUPS PO PRN ×2 (05:43→16:56)
[2018-06-06] MEDS: PRENATAL VITAMINS W/ FOLIC ACID TABLET (FP) PO SCH (10:45)
[2018-06-06] MEDS: NICOTINE POLACRILEX 2 MG GUM BUC PRN ×2 (10:45→16:56)
[2018-06-06] MEDS: LIDOCAINE 5% TOPICAL PATCH TP SCH (10:47)
--- NOTE | 2018-06-06 14:45 | PN ---
S CIWA - CIWA Score Nausea/Vomitin-No Nausea/No Vomiting Muscle Tremors: 1-None Visible, but [place] Anxiety: 1-Mildly Anxious Agitation: 1-Slight > Activity Paroxysmal Sweats: No Perspiration Orientation: 0-Oriented Tacttile Disturbances: 0-None Auditory Disturbances: 0-None Visual Disturbances: 0-None Headache: 1-Very Mild CIWA-Ar Total Score: 4 BHS Progress Note (SOAP) Subjective: feeling better mild sweating less tremor ambulating on hallway social with peers Objective: 06/06/18 14:44 Vital Signs Temperature 98.9 F 06/06/18 13:37 Pulse Rate 72 06/06/18 13:37 Respiratory Rate 18 06/06/18 13:37 Blood Pressure 123/79 06/06/18 13:37 O2 Sat by Pulse Oximetry (%) Laboratory Last Values WBC 6.0 K/mm3 (4.0-10.0) 06/04/18 05:30 RBC 4.53 M/mm3 (4.00-5.60) 06/04/18 05:30 Hgb 13.3 GM/dL (11.7-16.9) 06/04/18 05:30 Hct 39.0 % (35.4-49) 06/04/18 05:30 MCV 86.1 fl (80-96) 06/04/18 05:30 MCH 29.4 pg (25.7-33.7) 06/04/18 05:30 MCHC 34.1 g/dl (32.0-35.9) 06/04/18 05:30 RDW 13.4 % (11.9-15.9) 06/04/18 05:30 Plt Count 257 K/MM3 (134-434) D 06/04/18 05:30 MPV 9.5 fl (7.5-11.1) 06/04/18 05:30 Sodium 140 mmol/L (136-145) 06/04/18 05:30 Potassium 4.3 mmol/L (3.5-5.1) 06/04/18 05:30 Chloride 107 mmol/L (98-107) 06/04/18 05:30 Carbon Dioxide 25 mmol/L (21-32) 06/04/18 05:30 Anion Gap 7 MMOL/L (8-16) L 06/04/18 05:30 BUN 19 mg/dL (7-18) H 06/04/18 05:30 Creatinine 1.4 mg/dL (0.55-1.3) H 06/04/18 05:30 Creat Clearance w eGFR 52.81 (>60) 06/04/18 05:30 Random Glucose 127 mg/dL (74-106) H 06/04/18 05:30 Calcium 9.8 mg/dL (8.5-10.1) 06/04/18 05:30 Total Bilirubin 0.5 mg/dL (0.2-1) 06/04/18 05:30 AST 23 U/L (15-37) 06/04/18 05:30 ALT 54 U/L (13-61) 06/04/18 05:30 Alkaline Phosphatase 107 U/L (45-117) 06/04/18 05:30 Total Protein 7.2 g/dl (6.4-8.2) 06/04/18 05:30 Albumin 3.9 g/dl (3.4-5.0) 06/04/18 05:30 RPR Titer Nonreactive (NONREACTIVE) 06/04/18 05:30 HIV 1&2 Antibody Screen Negative 06/03/18 13:20 HIV P24 Antigen Negative 06/03/18 13:20 lab noted Assessment: 06/06/18 14:44 mild withdrawal sx 06/06/18 14:45 Plan: continue detox
[2018-06-06] MEDS: METHOCARBAMOL 500 MG TABLET PO PRN (16:54)
[2018-06-06] MEDS: LIDOCAINE PATCH REMOVAL MC SCH (22:14)
[2018-06-06] MEDS: THIAMINE HCL 100 MG TABLET (FP) PO SCH (22:14)
[2018-06-07] MEDS: chlordiazePOXIDE HCL 10 MG CAPSULE PO SCH (05:38)
[2018-06-07] MEDS: guaiFENesin 200 MG/10 ML 10 ML UNIT-DOSE CUPS PO PRN (05:39)
[2018-06-07] MEDS: IBUPROFEN 600 MG TABLET (FP) PO PRN (06:02)
[2018-06-07] MEDS: LIDOCAINE 5% TOPICAL PATCH TP SCH (10:27)
[2018-06-07] MEDS: PRENATAL VITAMINS W/ FOLIC ACID TABLET (FP) PO SCH (10:27)
[2018-06-07] MEDS: NICOTINE POLACRILEX 2 MG GUM BUC PRN ×2 (10:27→13:28)
[2018-06-07] MEDS: METHOCARBAMOL 500 MG TABLET PO PRN (10:27)
[2018-06-07 13:38] VITALS: BP 126/78; PULSE 77; TEMP 98
--- NOTE | 2018-06-07 15:10 | DS ---
[facility] Detox Discharge Summary Admission Date: 06/03/18 Discharge Date: 06/07/18 - History Present History: Alcohol Dependence Additional Comments: 53 years old male admitted on 06/03/18 for alcohol withdrawal stabilization completed detox regimen [facility] - Physical Exam Results Vital Signs: Vital Signs Temperature 98 F 06/07/18 13:36 Pulse Rate 77 06/07/18 13:36 Respiratory Rate 18 06/07/18 13:36 Blood Pressure 126/78 06/07/18 13:36 O2 Sat by Pulse Oximetry (%) Pertinent Admission Physical Exam Findings: alcohol withdrawal sx Laboratory Last Values WBC 6.0 K/mm3 (4.0-10.0) 06/04/18 05:30 RBC 4.53 M/mm3 (4.00-5.60) 06/04/18 05:30 Hgb 13.3 GM/dL (11.7-16.9) 06/04/18 05:30 Hct 39.0 % (35.4-49) 06/04/18 05:30 MCV 86.1 fl (80-96) 06/04/18 05:30 MCH 29.4 pg (25.7-33.7) 06/04/18 05:30 MCHC 34.1 g/dl (32.0-35.9) 06/04/18 05:30 RDW 13.4 % (11.9-15.9) 06/04/18 05:30 Plt Count 257 K/MM3 (134-434) D 06/04/18 05:30 MPV 9.5 fl (7.5-11.1) 06/04/18 05:30 Sodium 140 mmol/L (136-145) 06/04/18 05:30 Potassium 4.3 mmol/L (3.5-5.1) 06/04/18 05:30 Chloride 107 mmol/L (98-107) 06/04/18 05:30 Carbon Dioxide 25 mmol/L (21-32) 06/04/18 05:30 Anion Gap 7 MMOL/L (8-16) L 06/04/18 05:30 BUN 19 mg/dL (7-18) H 06/04/18 05:30 Creatinine 1.4 mg/dL (0.55-1.3) H 06/04/18 05:30 Creat Clearance w eGFR 52.81 (>60) 06/04/18 05:30 Random Glucose 127 mg/dL (74-106) H 06/04/18 05:30 Calcium 9.8 mg/dL (8.5-10.1) 06/04/18 05:30 Total Bilirubin 0.5 mg/dL (0.2-1) 06/04/18 05:30 AST 23 U/L (15-37) 06/04/18 05:30 ALT 54 U/L (13-61) 06/04/18 05:30 Alkaline Phosphatase 107 U/L (45-117) 06/04/18 05:30 Total Protein 7.2 g/dl (6.4-8.2) 06/04/18 05:30 Albumin 3.9 g/dl (3.4-5.0) 06/04/18 05:30 RPR Titer Nonreactive (NONREACTIVE) 06/04/18 05:30 HIV 1&2 Antibody Screen Negative 06/03/18 13:20 HIV P24 Antigen Negative 06/03/18 13:20 lab noted - Treatment Hospital Course: Detox Protocol Followed, Detoxed Safely, Responded well, Discharged Condition Good, Rehab Referral Accepted Patient has Accepted a Rehab Referral to: [facility] - Medication Discharge Medications: Ambulatory Orders NK [No Known Home Medication] 11/15/17 - Diagnosis (1) Nicotine dependence Status: Acute Qualifiers: Nicotine product type: cigarettes Substance use status: in withdrawal Qualified Code(s): F17.213 - Nicotine dependence, cigarettes, with withdrawal (2) Alcohol dependence with uncomplicated withdrawal Status: Acute - AMA Did Patient Leave Against Medical Advice: No
== END 2018-06-07 14:04 | disposition home or self-care (01) | DRG 774 ==
LOC: YASAS 10:15 → Y3N 13:23
PROVIDERS: ADMIT Surgery; ATTEND Surgery
PROC: HZ2ZZZZ Detoxification Services for Substance Abuse Treatment (ICD-10-PCS; principal; 2018-06-03)
DX: F10.230 Alcohol dependence with withdrawal, uncomplicated (principal); F17.210 Nicotine dependence, cigarettes, uncomplicated; F14.20 Cocaine dependence, uncomplicated; R55 Syncope and collapse; E66.9 Obesity, unspecified; Z68.41 Body mass index [BMI] 40.0-44.9, adult; Z86.2 Personal history of diseases of the blood and blood-forming organs and certain disorders involving the immune mechanism; Z86.19 Personal history of other infectious and parasitic diseases; Z87.828 Personal history of other (healed) physical injury and trauma
CPT/HCPCS: 36415; 80053; 85027; 86593; 87389

== ENCOUNTER 2020-05-29 14:23 | Inpatient (IN) | payer OTHER ==
[2020-05-29 18:46] VITALS: BMI 35.7
[2020-05-29] MEDS ORDERED: NICOTINE POLACRILEX 2 MG GUM BUC PRN (20:46)
[2020-05-29] MEDS ORDERED: MAGNESIUM HYDROX 2400MG/30ML ORAL SUSPENSION 30 ML CUP PO PRN (20:46)
[2020-05-29] MEDS ORDERED: MENTHOL/PHENOL 1 EACH UD MM PRN (20:46)
[2020-05-29] MEDS ORDERED: MAGNESIUM CITRATE 300 ML BOTTLE PO PRN (20:46)
[2020-05-29] MEDS ORDERED: BISMUTH SUBSALICYLATE 524 MG/30 ML UD PO PRN (20:46)
[2020-05-29] MEDS ORDERED: MAG HYDROX/AL HYDROX/SIMETH 30 ML UNIT-DOSE CUP PO PRN (20:46)
[2020-05-29] MEDS ORDERED: ACETAMINOPHEN 325 MG TABLET (FP) PO PRN ×2 (20:46)
[2020-05-29] MEDS ORDERED: ONDANSETRON *ODT* 4 MG TABLET SL PRN (20:46)
[2020-05-29] MEDS ORDERED: chlordiazePOXIDE HCL 25 MG CAPSULE PO PRN (20:49)
[2020-05-29] MEDS ORDERED: HYDROCORTISONE 0.5% TOPICAL OINTMENT TUBE TP PRN (20:49)
[2020-05-30] MEDS: MELATONIN 5 MG TABLETS PO SCH ×2 (00:02→22:29)
[2020-05-30] MEDS: chlordiazePOXIDE HCL 25 MG CAPSULE PO SCH ×5 (00:05→22:28)
[2020-05-30] MEDS: THIAMINE HCL 100 MG TABLET (FP) PO SCH ×2 (00:07→22:28)
[2020-05-30] MEDS: CARBAMIDE PEROXIDE 6.5% OTIC 15 ML BOTTLE AU SCH ×3 (02:08→22:30)
[2020-05-30] MEDS: METHOCARBAMOL 500 MG TABLET PO PRN (06:10)
[2020-05-30] MEDS: PRENATAL VITAMINS W/ FOLIC ACID TABLET (FP) PO SCH (10:15)
[2020-05-30] MEDS: IBUPROFEN 400 MG TABLET (FP) PO PRN ×2 (10:16→18:07)
[2020-05-30] MEDS ORDERED: FLU VACCINE (FLULAVAL) PF 60 MCG/0.5 ML SYRINGE 2020-2021 IM ONE (12:00)
[2020-05-30 13:44] LABS: HEMATOCRIT 38.1 % (35.4-49); HEMOGLOBIN 12.7 GM/dL (11.7-16.9); MCH 30.1 pg (25.7-33.7); MCHC 33.3 g/dl (32.0-35.9); MEAN CELL VOLUME 90.6 fl (80-96); MEAN PLT VOLUME 9.6 fl (7.5-11.1); PLATELET COUNT 181 K/MM3 (134-434); RDW 13.2 % (11.9-15.9); WHITE BLOOD COUNT 3.5 K/mm3 (4.0-10.0)
[2020-05-30 13:54] LABS: ALBUMIN 3.3 g/dl (3.4-5.0)
[2020-05-30 13:55] LABS: BLOOD UREA NITROGEN 20.8 mg/dL (7-18); CREATININE 1.2 mg/dL (0.55-1.3)
[2020-05-30 13:56] LABS: TOT PROT 5.8 g/dl (6.4-8.2)
[2020-05-30 14:00] LABS: BILIRUBIN,TOTAL 0.7 mg/dL (0.2-1)
[2020-05-30 16:52] LABS: HIV INTERPRETATION NEGATIVE (NEGATIVE)
[2020-05-31] MEDS: chlordiazePOXIDE HCL 25 MG CAPSULE PO SCH ×4 (06:06→22:29)
[2020-05-31] MEDS: IBUPROFEN 400 MG TABLET (FP) PO PRN (06:10)
[2020-05-31] MEDS: CARBAMIDE PEROXIDE 6.5% OTIC 15 ML BOTTLE AU SCH ×2 (10:37→23:17)
[2020-05-31] MEDS: METHOCARBAMOL 500 MG TABLET PO PRN ×2 (10:37→18:34)
[2020-05-31] MEDS: PRENATAL VITAMINS W/ FOLIC ACID TABLET (FP) PO SCH (10:37)
[2020-05-31] MEDS: THIAMINE HCL 100 MG TABLET (FP) PO SCH (22:29)
[2020-05-31] MEDS: MELATONIN 5 MG TABLETS PO SCH (22:29)
[2020-06-01] MEDS ORDERED: chlordiazePOXIDE HCL 10 MG CAPSULE PO PRN
[2020-06-01] MEDS: chlordiazePOXIDE HCL 10 MG CAPSULE PO SCH ×4 (06:40→22:39)
[2020-06-01] MEDS: METHOCARBAMOL 500 MG TABLET PO PRN ×2 (06:41→18:04)
[2020-06-01] MEDS: IBUPROFEN 400 MG TABLET (FP) PO PRN ×2 (06:43→22:40)
[2020-06-01] MEDS: CARBAMIDE PEROXIDE 6.5% OTIC 15 ML BOTTLE AU SCH ×2 (10:25→23:04)
[2020-06-01] MEDS: PRENATAL VITAMINS W/ FOLIC ACID TABLET (FP) PO SCH (10:26)
[2020-06-01] MEDS: THIAMINE HCL 100 MG TABLET (FP) PO SCH (22:39)
[2020-06-01] MEDS: MELATONIN 5 MG TABLETS PO SCH (22:40)
[2020-06-02] MEDS: chlordiazePOXIDE HCL 10 MG CAPSULE PO SCH ×2 (06:20→17:12)
[2020-06-02] MEDS: METHOCARBAMOL 500 MG TABLET PO PRN (06:21)
[2020-06-02] MEDS: PRENATAL VITAMINS W/ FOLIC ACID TABLET (FP) PO SCH (10:31)
[2020-06-02] MEDS: CARBAMIDE PEROXIDE 6.5% OTIC 15 ML BOTTLE AU SCH ×2 (10:31→22:24)
[2020-06-02] MEDS: MELATONIN 5 MG TABLETS PO SCH (22:24)
[2020-06-02] MEDS: THIAMINE HCL 100 MG TABLET (FP) PO SCH (22:24)
[2020-06-03] MEDS ORDERED: chlordiazePOXIDE HCL 10 MG CAPSULE PO ONE (05:00)
[2020-06-03 09:07] VITALS: BP 147/83; PULSE 57; TEMP 97.5
[2020-06-03] MEDS: CARBAMIDE PEROXIDE 6.5% OTIC 15 ML BOTTLE AU SCH (10:00)
[2020-06-03] MEDS: PRENATAL VITAMINS W/ FOLIC ACID TABLET (FP) PO SCH (10:01)
== END 2020-06-03 11:38 | disposition home or self-care (01) | DRG 774 ==
LOC: YASAS 14:23 → Y6N 22:26
PROVIDERS: ADMIT Allergy & Immunology; ATTEND Allergy & Immunology
PROC: HZ2ZZZZ Detoxification Services for Substance Abuse Treatment (ICD-10-PCS; principal; 2020-05-29)
DX: F10.230 Alcohol dependence with withdrawal, uncomplicated (principal); F10.220 Alcohol dependence with intoxication, uncomplicated; F14.20 Cocaine dependence, uncomplicated; F17.210 Nicotine dependence, cigarettes, uncomplicated; D72.819 Decreased white blood cell count, unspecified; H93.13 Tinnitus, bilateral; E66.9 Obesity, unspecified; Z68.35 Body mass index [BMI] 35.0-35.9, adult; Z86.2 Personal history of diseases of the blood and blood-forming organs and certain disorders involving the immune mechanism; Z86.19 Personal history of other infectious and parasitic diseases; Z87.828 Personal history of other (healed) physical injury and trauma
CPT/HCPCS: 36415; 80053; 82962; 85027; 86780; 87389; 93005; 93010; C9803; G0008; Q2036; U0003

== ENCOUNTER 2021-05-15 14:35 | Inpatient (IN) | payer OTHER ==
[2021-05-15 16:24] VITALS: BMI 34.3
[2021-05-15] MEDS ORDERED: chlordiazePOXIDE HCL 25 MG CAPSULE PO PRN (19:22)
[2021-05-15] MEDS ORDERED: MAG HYDROX/AL HYDROX/SIMETH 30 ML UNIT-DOSE CUP PO PRN (19:22)
[2021-05-15] MEDS ORDERED: NICOTINE 10 MG CARTRIDGE (INHALER) IH PRN (19:22)
[2021-05-15] MEDS ORDERED: METHOCARBAMOL 500 MG TABLET PO PRN (19:22)
[2021-05-15] MEDS ORDERED: MAGNESIUM CITRATE 300 ML BOTTLE PO PRN (19:22)
[2021-05-15] MEDS ORDERED: BISMUTH SUBSALICYLATE 524 MG/30 ML PO PRN (19:22)
[2021-05-15] MEDS ORDERED: MAGNESIUM HYDROX 2400MG/30ML ORAL SUSPENSION 30 ML CUP PO PRN (19:22)
[2021-05-15] MEDS ORDERED: ONDANSETRON *ODT* 4 MG TABLET SL PRN (19:22)
[2021-05-15] MEDS ORDERED: ACETAMINOPHEN 325 MG TABLET (FP) PO PRN (19:22)
[2021-05-15] MEDS ORDERED: LOPERAMIDE HCL 2 MG CAPSULE PO PRN (19:22)
[2021-05-16] MEDS: MELATONIN 5 MG TABLETS PO SCH ×2 (00:37→22:10)
[2021-05-16] MEDS: hydrOXYzine PAMOATE 25 MG CAPSULE (FP) PO SCH ×6 (00:37→22:10)
[2021-05-16] MEDS: chlordiazePOXIDE HCL 25 MG CAPSULE PO SCH ×5 (00:37→22:11)
[2021-05-16] MEDS: THIAMINE HCL 100 MG TABLET (FP) PO SCH ×2 (00:37→22:10)
[2021-05-16] MEDS: IBUPROFEN 400 MG TABLET (FP) PO PRN ×2 (05:40→17:59)
[2021-05-16] MEDS: PRENATAL VITAMINS W/ FOLIC ACID TABLET (FP) PO SCH (10:34)
[2021-05-16 12:30] LABS: HEMATOCRIT 35.4 % (35.4-49); HEMOGLOBIN 11.5 GM/dL (11.7-16.9); MCH 30.5 pg (25.7-33.7); MCHC 32.4 g/dl (32.0-35.9); MEAN CELL VOLUME 94.1 fl (80-96); MEAN PLT VOLUME 9.4 fl (7.5-11.1); PLATELET COUNT 180 10^3/uL (134-434); RBC 3.77 M/mm3 (4.00-5.60); RDW 14.4 % (11.9-15.9); WHITE BLOOD COUNT 3.6 K/mm3 (4.0-10.0)
[2021-05-16 12:44] LABS: ALBUMIN 3.1 g/dl (3.4-5.0); BLOOD UREA NITROGEN 16.1 mg/dL (7-18)
[2021-05-16 12:47] LABS: CREATININE 1.1 mg/dL (0.55-1.3)
[2021-05-16 12:49] LABS: BILIRUBIN,TOTAL 0.3 mg/dL (0.2-1); TOT PROT 5.7 g/dl (6.4-8.2)
[2021-05-16] MEDS: MENTHOL/PHENOL 1 EACH UD MM PRN (22:12)
[2021-05-17] MEDS: chlordiazePOXIDE HCL 25 MG CAPSULE PO SCH ×4 (05:42→22:48)
[2021-05-17] MEDS: hydrOXYzine PAMOATE 25 MG CAPSULE (FP) PO SCH ×5 (05:42→22:48)
[2021-05-17] MEDS: IBUPROFEN 400 MG TABLET (FP) PO PRN (05:44)
[2021-05-17] MEDS: PRENATAL VITAMINS W/ FOLIC ACID TABLET (FP) PO SCH (11:01)
[2021-05-17 12:31] LABS: HIV INTERPRETATION NEGATIVE (NEGATIVE)
[2021-05-17] MEDS: NICOTINE POLACRILEX 4 MG GUM BUC PRN (20:33)
[2021-05-17] MEDS: THIAMINE HCL 100 MG TABLET (FP) PO SCH (22:48)
[2021-05-17] MEDS: MELATONIN 5 MG TABLETS PO SCH (22:48)
[2021-05-18] MEDS ORDERED: chlordiazePOXIDE HCL 10 MG CAPSULE PO PRN
[2021-05-18] MEDS: chlordiazePOXIDE HCL 10 MG CAPSULE PO SCH ×4 (05:45→22:35)
[2021-05-18] MEDS: hydrOXYzine PAMOATE 25 MG CAPSULE (FP) PO SCH ×5 (05:45→22:35)
[2021-05-18] MEDS: MENTHOL/PHENOL 1 EACH UD MM PRN ×2 (05:47→10:55)
[2021-05-18] MEDS: NICOTINE POLACRILEX 4 MG GUM BUC PRN ×2 (05:47→10:54)
[2021-05-18] MEDS: PRENATAL VITAMINS W/ FOLIC ACID TABLET (FP) PO SCH (10:51)
[2021-05-18] MEDS: ACETAMINOPHEN 325 MG TABLET (FP) PO PRN (10:52)
[2021-05-18] MEDS: MELATONIN 5 MG TABLETS PO SCH (22:35)
[2021-05-18] MEDS: THIAMINE HCL 100 MG TABLET (FP) PO SCH (22:35)
[2021-05-19] MEDS: chlordiazePOXIDE HCL 10 MG CAPSULE PO SCH ×2 (05:37→17:44)
[2021-05-19] MEDS: hydrOXYzine PAMOATE 25 MG CAPSULE (FP) PO SCH ×5 (05:38→22:17)
[2021-05-19] MEDS: ACETAMINOPHEN 325 MG TABLET (FP) PO PRN (05:38)
[2021-05-19] MEDS: PRENATAL VITAMINS W/ FOLIC ACID TABLET (FP) PO SCH (10:52)
[2021-05-19] MEDS: NICOTINE POLACRILEX 4 MG GUM BUC PRN ×2 (10:52→17:46)
[2021-05-19] MEDS: MENTHOL/PHENOL 1 EACH UD MM PRN ×2 (10:52→17:45)
[2021-05-19 17:10] LABS: SARS-CoV-2 NAA Not Detected
[2021-05-19] MEDS: THIAMINE HCL 100 MG TABLET (FP) PO SCH (22:17)
[2021-05-19] MEDS: MELATONIN 5 MG TABLETS PO SCH (22:17)
[2021-05-20] MEDS ORDERED: chlordiazePOXIDE HCL 10 MG CAPSULE PO ONE (05:00)
[2021-05-20] MEDS: hydrOXYzine PAMOATE 25 MG CAPSULE (FP) PO SCH ×2 (05:51→10:11)
[2021-05-20 09:09] VITALS: BP 141/96; PULSE 58; TEMP 96.8
[2021-05-20] MEDS: PRENATAL VITAMINS W/ FOLIC ACID TABLET (FP) PO SCH (10:11)
== END 2021-05-20 09:52 | disposition home or self-care (01) | DRG 774 ==
LOC: YASAS 14:35 → Y3N 22:56
PROVIDERS: ADMIT Allergy & Immunology; ATTEND Allergy & Immunology
PROC: HZ2ZZZZ Detoxification Services for Substance Abuse Treatment (ICD-10-PCS; principal; 2021-05-15)
DX: F10.230 Alcohol dependence with withdrawal, uncomplicated (principal); F14.20 Cocaine dependence, uncomplicated; F17.210 Nicotine dependence, cigarettes, uncomplicated; D64.9 Anemia, unspecified; M19.90 Unspecified osteoarthritis, unspecified site; M54.50 Low back pain, unspecified; G89.29 Other chronic pain
CPT/HCPCS: 36415; 80053; 85027; 86780; 87389; 87811; C9803; U0003; U0005

== ENCOUNTER 2022-03-16 09:51 | Inpatient (IN) | payer OTHER ==
[2022-03-16 10:24] VITALS: BMI 30.4
[2022-03-16] MEDS ORDERED: MAGNESIUM HYDROX 2400MG/30ML ORAL SUSPENSION 30 ML CUP PO PRN (11:21)
[2022-03-16] MEDS ORDERED: ONDANSETRON *ODT* 4 MG TABLET SL PRN (11:21)
[2022-03-16] MEDS ORDERED: LOPERAMIDE HCL 2 MG CAPSULE PO PRN (11:21)
[2022-03-16] MEDS ORDERED: MAG HYDROX/AL HYDROX/SIMETH 30 ML UNIT-DOSE CUP PO PRN (11:21)
[2022-03-16] MEDS ORDERED: DICYCLOMINE HCL 10 MG CAPSULE PO PRN (11:21)
[2022-03-16] MEDS ORDERED: chlordiazePOXIDE HCL 25 MG CAPSULE PO PRN (11:21)
[2022-03-16] MEDS ORDERED: NALOXONE HCL (KLOXXADO) 8 MG SPRAY NS PRN (11:21)
[2022-03-16] MEDS ORDERED: ACETAMINOPHEN 325 MG TABLET (FP) PO PRN (11:21)
[2022-03-16] MEDS ORDERED: IBUPROFEN 400 MG TABLET (FP) PO PRN (11:21)
[2022-03-16] MEDS ORDERED: BISMUTH SUBSALICYLATE 262 MG/15 ML BTL PO PRN (11:21)
[2022-03-16] MEDS ORDERED: BENZOCAINE/MENTHOL (CHLORASEPTIC ) LOZENGE MM PRN (11:21)
[2022-03-16] MEDS ORDERED: POLYETHYLENE GLYCOL (HEALTHYLAX) 3350 17 GM PACKET PO PRN (11:21)
[2022-03-16] MEDS ORDERED: NICOTINE 10 MG CARTRIDGE (INHALER) IH PRN (11:21)
[2022-03-16] MEDS: ACETAMINOPHEN 325 MG TABLET (FP) PO PRN ×2 (13:04→20:33)
[2022-03-16] MEDS: VITAMINS A AND D TOPICAL OINTMENT 60 GM TUBE TP SCH ×3 (13:05→23:05)
[2022-03-16 17:34] LABS: HEMATOCRIT 36.4 % (35.4-49); HEMOGLOBIN 11.9 GM/dL (11.7-16.9); MCH 29.3 pg (25.7-33.7); MCHC 32.6 g/dl (32.0-35.9); MEAN CELL VOLUME 89.9 fl (80-96); MEAN PLT VOLUME 8.8 fl (7.5-11.1); PLATELET COUNT 210 10^3/uL (134-434); RBC 4.05 M/mm3 (4.00-5.60); RDW 12.8 % (11.9-15.9); WHITE BLOOD COUNT 4.3 K/mm3 (4.0-10.0)
[2022-03-16 17:36] LABS: ALBUMIN 3.3 g/dl (3.4-5.0); CALCIUM 9.1 mg/dL (8.5-10.1)
[2022-03-16 17:37] LABS: BLOOD UREA NITROGEN 19.6 mg/dL (7-18)
[2022-03-16] MEDS: chlordiazePOXIDE HCL 25 MG CAPSULE PO SCH ×2 (17:39→22:30)
[2022-03-16 17:40] LABS: CREATININE 1.1 mg/dL (0.55-1.3)
[2022-03-16] MEDS: IBUPROFEN 600 MG TABLET (FP) PO PRN (17:40)
[2022-03-16 17:41] LABS: BILIRUBIN,TOTAL 0.7 mg/dL (0.2-1); TOT PROT 6.3 g/dl (6.4-8.2)
[2022-03-16] MEDS ORDERED: LIDOCAINE VISCOUS 2% ORAL/TOP 15 ML UNIT-DOSE CUP MM PRN (18:12)
[2022-03-16] MEDS ORDERED: cloNIDine HCL 0.1 MG TABLET PO ONE (20:52)
[2022-03-16] MEDS: THIAMINE HCL 100 MG TABLET (FP) PO SCH (22:30)
[2022-03-16] MEDS: MELATONIN 5 MG TABLETS PO SCH (22:30)
[2022-03-17] MEDS: IBUPROFEN 600 MG TABLET (FP) PO PRN (05:44)
[2022-03-17] MEDS: chlordiazePOXIDE HCL 25 MG CAPSULE PO SCH ×4 (05:48→22:46)
[2022-03-17] MEDS: VITAMINS A AND D TOPICAL OINTMENT 60 GM TUBE TP SCH ×3 (06:20→18:45)
[2022-03-17] MEDS: PRENATAL VITAMINS W/ FOLIC ACID TABLET (FP) PO SCH (10:25)
[2022-03-17] MEDS: BENZOCAINE 20 % GEL TUBE MM PRN (13:57)
[2022-03-17] MEDS: LACTULOSE 20 GM/30 ML UDC (FOR ORAL USE ONLY) PO SCH ×3 (13:57→22:43)
[2022-03-17] MEDS: AMOXICILLIN 500 MG CAPSULE (FP) PO SCH ×2 (13:57→22:45)
[2022-03-17] MEDS: MELATONIN 5 MG TABLETS PO SCH (22:45)
[2022-03-17] MEDS: THIAMINE HCL 100 MG TABLET (FP) PO SCH (22:45)
[2022-03-17] MEDS: METHOCARBAMOL 500 MG TABLET PO PRN (22:46)
[2022-03-18] MEDS: VITAMINS A AND D TOPICAL OINTMENT 60 GM TUBE TP SCH ×4 (00:59→19:00)
[2022-03-18] MEDS: BENZOCAINE 20 % GEL TUBE MM PRN (05:51)
[2022-03-18] MEDS: chlordiazePOXIDE HCL 25 MG CAPSULE PO SCH ×4 (05:51→22:32)
[2022-03-18] MEDS: AMOXICILLIN 500 MG CAPSULE (FP) PO SCH ×3 (05:51→22:30)
[2022-03-18] MEDS: PRENATAL VITAMINS W/ FOLIC ACID TABLET (FP) PO SCH (10:41)
[2022-03-18] MEDS: LACTULOSE 20 GM/30 ML UDC (FOR ORAL USE ONLY) PO SCH ×3 (10:41→22:31)
[2022-03-18 15:35] LABS: HIV INTERPRETATION NEGATIVE (NEGATIVE)
[2022-03-18] MEDS: hydrOXYzine PAMOATE 25 MG CAPSULE (FP) PO PRN (17:42)
[2022-03-18] MEDS: MELATONIN 5 MG TABLETS PO SCH (22:30)
[2022-03-18] MEDS: THIAMINE HCL 100 MG TABLET (FP) PO SCH (22:30)
[2022-03-19] MEDS ORDERED: chlordiazePOXIDE HCL 10 MG CAPSULE PO PRN
[2022-03-19] MEDS: VITAMINS A AND D TOPICAL OINTMENT 60 GM TUBE TP SCH ×5 (01:01→23:22)
[2022-03-19] MEDS: chlordiazePOXIDE HCL 10 MG CAPSULE PO SCH ×4 (05:23→22:04)
[2022-03-19] MEDS: AMOXICILLIN 500 MG CAPSULE (FP) PO SCH ×3 (05:23→22:04)
[2022-03-19] MEDS: BENZOCAINE 20 % GEL TUBE MM PRN (05:27)
[2022-03-19] MEDS: LACTULOSE 20 GM/30 ML UDC (FOR ORAL USE ONLY) PO SCH ×2 (10:15→22:07)
[2022-03-19] MEDS: PRENATAL VITAMINS W/ FOLIC ACID TABLET (FP) PO SCH (10:15)
[2022-03-19] MEDS: THIAMINE HCL 100 MG TABLET (FP) PO SCH (22:04)
[2022-03-19] MEDS: MELATONIN 5 MG TABLETS PO SCH (22:05)
[2022-03-19] MEDS: NICOTINE POLACRILEX 2 MG GUM BUC PRN (22:06)
[2022-03-20] MEDS: chlordiazePOXIDE HCL 10 MG CAPSULE PO SCH ×2 (05:57→18:08)
[2022-03-20] MEDS: AMOXICILLIN 500 MG CAPSULE (FP) PO SCH ×3 (05:57→22:30)
[2022-03-20] MEDS: VITAMINS A AND D TOPICAL OINTMENT 60 GM TUBE TP SCH ×3 (05:57→18:08)
[2022-03-20] MEDS: BENZOCAINE 20 % GEL TUBE MM PRN (06:12)
[2022-03-20] MEDS: PRENATAL VITAMINS W/ FOLIC ACID TABLET (FP) PO SCH (10:37)
[2022-03-20] MEDS: LACTULOSE 20 GM/30 ML UDC (FOR ORAL USE ONLY) PO SCH (10:38)
[2022-03-20] MEDS: IBUPROFEN 600 MG TABLET (FP) PO PRN (10:38)
[2022-03-20] MEDS: METHOCARBAMOL 500 MG TABLET PO PRN (10:39)
[2022-03-20 21:55] VITALS: RESP 18
[2022-03-20] MEDS: THIAMINE HCL 100 MG TABLET (FP) PO SCH (22:30)
[2022-03-20] MEDS: MELATONIN 5 MG TABLETS PO SCH (22:30)
[2022-03-21] MEDS: VITAMINS A AND D TOPICAL OINTMENT 60 GM TUBE TP SCH ×2 (00:50→05:46)
[2022-03-21] MEDS ORDERED: chlordiazePOXIDE HCL 10 MG CAPSULE PO ONE (05:00)
[2022-03-21] MEDS: AMOXICILLIN 500 MG CAPSULE (FP) PO SCH (05:14)
[2022-03-21] MEDS: METHOCARBAMOL 500 MG TABLET PO PRN (05:18)
[2022-03-21] MEDS: hydrOXYzine PAMOATE 25 MG CAPSULE (FP) PO PRN (05:18)
[2022-03-21] MEDS: NICOTINE POLACRILEX 2 MG GUM BUC PRN ×2 (05:18→10:44)
[2022-03-21 06:20] VITALS: PULSE 67
[2022-03-21 08:57] VITALS: BP 128/76; TEMP 98.3
[2022-03-21] MEDS: PRENATAL VITAMINS W/ FOLIC ACID TABLET (FP) PO SCH (10:43)
== END 2022-03-21 10:50 | disposition home or self-care (01) | DRG 774 ==
LOC: YASAS 09:51 → Y3N 12:00
PROVIDERS: ADMIT Allergy & Immunology; ATTEND Surgery
PROC: HZ2ZZZZ Detoxification Services for Substance Abuse Treatment (ICD-10-PCS; principal; 2022-03-16)
DX: F10.230 Alcohol dependence with withdrawal, uncomplicated (principal); F14.20 Cocaine dependence, uncomplicated; F12.20 Cannabis dependence, uncomplicated; F17.210 Nicotine dependence, cigarettes, uncomplicated; G47.00 Insomnia, unspecified; L30.9 Dermatitis, unspecified; M54.50 Low back pain, unspecified; G89.29 Other chronic pain; M19.90 Unspecified osteoarthritis, unspecified site; R79.89 Other specified abnormal findings of blood chemistry
CPT/HCPCS: 36415; 80053; 82140; 83036; 85027; 86780; 87389; 87811; C9803-CS; U0003; U0005